=== PATIENT | female | born 1980 | race Caucasian/White ===

== ENCOUNTER 2022-04-30 17:00 | Emergency (ER) | payer MEDICARE, SELFPAY ==
[2022-04-30 17:01] VITALS: BP 160/112; PULSE 100; RESP 14; TEMP 36.8; O2SAT 100; BMI 21.7
--- NOTE | 2022-04-30 17:42 | XR_ITS ---
PROCEDURE INFORMATION: Exam: XR Chest Exam date and time: 04/30/2022 6:02 PM Age: 41 years old Clinical indication: Shortness of breath; Additional info: Sob/cp TECHNIQUE: Imaging protocol: Radiologic exam of the chest. Views: 1 view. COMPARISON: No relevant prior studies available. FINDINGS: Lungs: No evidence of pneumonia or interstitial edema. Pleural spaces: Unremarkable. No pleural effusion. No pneumothorax. Heart/Mediastinum: Unremarkable. No cardiomegaly. Bones/joints: Unremarkable. IMPRESSION: No evidence of pneumonia or interstitial edema.
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
[2022-04-30 18:00] VITALS: BP 168/116; PULSE 102; RESP 18; O2SAT 100
--- NOTE | 2022-04-30 18:13 | PC.NURSE ---
lab at bedside, attempting to draw blood at this time.
--- NOTE | 2022-04-30 18:25 | PC.NURSE ---
lab was able to collect blood besides an ammonia. Notified
--- NOTE | 2022-04-30 18:30 | ECG_ITS ---
APPROVED REPORT Exam: Resting ECG HR:107 bpm ECG Measurements Heart Rate 107 AXES NC 128 P 63 QRSd 72 QRS 29 QT 339 T 68 QTc 402 Conclusion SINUS TACHYCARDIA WITH OCCASIONAL VENTRICULAR PREMATURE COMPLEXES Biatrial abnormality. UNCONFIRMED REPORT Electronically signed by : Ja Yang MD 05/01/2022 18:09:46
--- NOTE | 2022-04-30 18:35 | PC.NURSE ---
pt given warm blanket
[2022-04-30 18:45] LABS: Chloride 101 mmol/L (98-107); Sodium 136 mmol/L (136-145)
[2022-04-30 18:47] LABS: Alanine Aminotransferase 32 U/L (12-78); Aspartate Amino Transferase 44 U/L (14-36); Blood Urea Nitrogen 4 mg/dl (7-17); Creatinine Clearance Estimated 103 mL/min (50-200); Estimated Glomerular Filt Rate 93 ml/min (>60); GFR (African American) 112 ML/MIN (>60)
[2022-04-30 18:48] LABS: Albumin Level 3.9 g/dl (3.5-5.0); Albumin/Globulin Ratio 1.3 (1.1-1.8); Alkaline Phosphatase 93 U/L (38-126); Anion Gap 12.8 mEq/L (5-15); Bilirubin,Total 0.3 mg/dl (0.2-1.3); Calcium 8.6 mg/dl (8.4-10.2); Carbon Dioxide 25 mmol/L (22.0-30.0); Globulin 2.9 g/dL (1.3-3.2); Glucose 95 mg/dl (74-100); Magnesium 1.8 mg/dl (1.6-2.3); Total Protein,Serum 6.8 g/dl (6.3-8.2)
[2022-04-30 18:49] LABS: Ethyl Alcohol < 10 mg/dl (0-10)
[2022-04-30 18:50] LABS: Potassium 2.8 mmoL/L (3.5-5.1)
[2022-04-30 18:52] LABS: HCG Qualitative, Serum Negative (Negative)
[2022-04-30 18:53] LABS: Basophils # 0.1 K/mm3 (0-0.2); Basophils % 0.7 % (0.1-2.0); Eosinophils # 0.1 K/mm3 (0.0-0.4); Eosinophils % 1.2 % (0.1-12.0); Hematocrit 42.3 % (37.0-47.0); Hemoglobin 13.1 g/dL (12.2-16.2); Lymphocytes # 2.2 K/mm3 (0.7-4.5); Lymphocytes % 28.9 % (10-50); Mean Corpuscular Hemoglobin 28.7 pg (27.0-31.2); Mean Corpuscular Volume 92.4 fl (81-99); Monocytes # 0.5 K/mm3 (0.1-1.0); Monocytes % 6.6 % (1.7-9.3); Neutrophils # 4.8 K/mm3 (1.8-7.8); Neutrophils % 62.6 % (37.0-80.0); Red Blood Count 4.58 M/mm3 (4.20-5.40); Red Cell Distribution Width 15.1 % (11.5-17.5); White Blood Count 7.7 K/mm3 (4.8-10.8)
[2022-04-30 19:00] LABS: Platelet Count 40 K/mm3 (142-424)
--- NOTE | 2022-04-30 19:01 | PC.NURSE ---
PLT COUNT OF 41 RECEIVED FROM NANCY IN LAB. PT NAME AND R/V. DR. CARL NOTIFIED
[2022-04-30 19:42] VITALS: BP 184/104; PULSE 104; RESP 16; TEMP 36.8; O2SAT 100
--- NOTE | 2022-04-30 19:49 | PC.NURSE ---
Spoke with father and he states he is on his way to come get her.
== END 2022-04-30 20:22 | disposition home or self-care (01) ==
PROVIDERS: Emergency Provider Emergency Medicine
DX: R40.4 Transient alteration of awareness; E87.6 Hypokalemia; D69.6 Thrombocytopenia, unspecified; Z87.448 Personal history of other diseases of urinary system; F11.11 Opioid abuse, in remission; I10 Essential (primary) hypertension; K31.84 Gastroparesis; Z88.0 Allergy status to penicillin; Z88.8 Allergy status to other drugs, medicaments and biological substances; F41.9 Anxiety disorder, unspecified; F32.A Depression, unspecified; G43.909 Migraine, unspecified, not intractable, without status migrainosus; G47.00 Insomnia, unspecified
CPT/HCPCS: 71045; 80053; 83735; 84703; 85025; 93005; 99284

== ENCOUNTER 2022-05-03 17:35 | Emergency (ER) | payer OTHER, MEDICARE, SELFPAY ==
[2022-05-03 17:51] VITALS: BP 96/58; PULSE 79; RESP 20; TEMP 36.8; O2SAT 100; BMI 23.0
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
[2022-05-03 19:08] VITALS: BP 112/72; PULSE 74; RESP 20; TEMP 36.8; O2SAT 100
== END 2022-05-03 19:10 | disposition home or self-care (01) ==
LOC: ER 18:56
PROVIDERS: Emergency Provider Student in an Organized Health Care Education/Training Program
DX: M54.50 Low back pain, unspecified (principal); M54.2 Cervicalgia; M25.552 Pain in left hip; I10 Essential (primary) hypertension; K21.9 Gastro-esophageal reflux disease without esophagitis; G47.00 Insomnia, unspecified; G43.909 Migraine, unspecified, not intractable, without status migrainosus; M62.838 Other muscle spasm; F90.9 Attention-deficit hyperactivity disorder, unspecified type; F32.A Depression, unspecified; F41.9 Anxiety disorder, unspecified; F17.200 Nicotine dependence, unspecified, uncomplicated; Z82.49 Family history of ischemic heart disease and other diseases of the circulatory system; Z80.9 Family history of malignant neoplasm, unspecified; Z80.3 Family history of malignant neoplasm of breast; Z83.3 Family history of diabetes mellitus; Z81.8 Family history of other mental and behavioral disorders; V49.50XA Passenger injured in collision with unspecified motor vehicles in traffic accident, initial encounter; Y92.410 Unspecified street and highway as the place of occurrence of the external cause
CPT/HCPCS: 72040; 72100; 99283